=== PATIENT | female | born 1945 | race American Indian/Alaskan Native ===

== ENCOUNTER 2022-05-02 07:59 | Day surgery (SDC) | payer MEDICARE ==
[2022-04-27 11:57] LABS: BASOPHILS # (AUTO) 0.1 X10'3 (0-0.2); BASOPHILS % (AUTO) 1.1 % (0-1); EOSINOPHILS # (AUTO) 0.5 X10'3 (0-0.9); EOSINOPHILS % (AUTO) 5.9 % (0-6); HEMATOCRIT 40.8 % (35.0-45.0); HEMOGLOBIN 13.5 g/dl (12.0-16.0); LYMPHOCYTES # (AUTO) 1.8 X10'3 (1.1-4.8); LYMPHOCYTES % (AUTO) 21.3 % (21-51); MEAN CORPUSCULAR HEMOGLOBIN 29.3 PG (27.0-31.0); MEAN CORPUSCULAR HGB CONC 33.1 g/dL (33.0-36.5); MEAN CORPUSCULAR VOLUME 88.5 FL (78-98); MEAN PLATELET VOLUME 7.7 FL (7.4-10.4); MONOCYTES # (AUTO) 0.6 X10'3 (0-0.9); NEUTROPHILS # (AUTO) 5.6 X10'3 (1.8-7.7); NEUTROPHILS % (AUTO) 64.7 % (42-75); PLATELET COUNT 285 X10'3 (140-440); RED BLOOD COUNT 4.61 X10'6 (4.20-5.60); RED CELL DISTRIBUTION WIDTH 14.6 % (11.5-14.5); WHITE BLOOD COUNT 8.6 X10'3 (4.5-11.0)
[2022-04-27 12:09] LABS: APTT 27 SECONDS (22-32)
[2022-04-27 12:30] LABS: ALANINE AMINOTRANSFERASE 45 U/L (12-78); ALBUMIN 3.9 G/DL (3.4-5.0); ALBUMIN/GLOBULIN RATIO 1.1 (1.1-1.5); ALKALINE PHOSPHATASE 78 IU/L (46-116); ANION GAP 7 (8-16); ASPARTATE AMINO TRANSFERASE 33 U/L (10-37); BILIRUBIN,TOTAL 0.2 MG/DL (0.1-1.0); BLOOD UREA NITROGEN 23 MG/DL (7-18); BUN/CREATININE RATIO 18.4 (6.6-38.0); CALCIUM 9.3 MG/DL (8.5-10.1); CHLORIDE 100 MMOL/L (99-107); CREATININE 1.25 MG/DL (0.40-0.90); GLUCOSE 103 MG/DL (70-104); POTASSIUM 5.1 MMOL/L (3.5-5.1); SODIUM 134 MMOL/L (135-145); TOTAL CARBON DIOXIDE 27.3 MMOL/L (24-32); TOTAL PROTEIN 7.6 G/DL (6.4-8.2); eGFR 42 ML/MIN
[~2022-05-02] VITALS: Ht 167.6 cm; Wt 77.1 kg
[2022-05-02] VITALS (12 sets, daily range): BP systolic 93–162; BP diastolic 38–117
[2022-05-02] MEDS ORDERED: MAGN400T56 PO (08:17)
[2022-05-02] MEDS ORDERED: ROSU10TA2 PO (08:20)
[2022-05-02] MEDS ORDERED: DICL75TA5 PO (08:20)
[2022-05-02] MEDS ORDERED: LEVO100T PO (08:20)
[2022-05-02] MEDS ORDERED: ROPI4TAB22 PO (08:20)
[2022-05-02] MEDS ORDERED: LORazepam 0.5 MG tablet PO PRN (08:25)
[2022-05-02] MEDS ORDERED: diphenhydrAMINE 25mg capsule PO PRN (08:25)
[2022-05-02] MEDS ORDERED: normal saline 1,000 ML IV SCH (08:25)
[2022-05-02] MEDS ORDERED: nitroGLYCERIN 0.4mg SUBLingual tab SL PRN (08:25)
[2022-05-02] MEDS ORDERED: CALC-965 PO (08:26)
[2022-05-02] MEDS ORDERED: Vitamin E PO (08:26)
[2022-05-02] MEDS ORDERED: POTA20PA40 PO (08:26)
[2022-05-02 09:10] LABS: ALANINE AMINOTRANSFERASE 41 U/L (12-78); ALBUMIN 3.8 G/DL (3.4-5.0); ALBUMIN/GLOBULIN RATIO 1.1 (1.1-1.5); ALKALINE PHOSPHATASE 72 IU/L (46-116); ANION GAP 10 (8-16); ASPARTATE AMINO TRANSFERASE 21 U/L (10-37); BILIRUBIN,TOTAL 0.3 MG/DL (0.1-1.0); BLOOD UREA NITROGEN 28 MG/DL (7-18); CALCIUM 9.7 MG/DL (8.5-10.1); CHLORIDE 101 MMOL/L (99-107); CREATININE 1.27 MG/DL (0.40-0.90); GLUCOSE 95 MG/DL (70-104); POTASSIUM 4.7 MMOL/L (3.5-5.1); SODIUM 135 MMOL/L (135-145); TOTAL CARBON DIOXIDE 24.3 MMOL/L (24-32); TOTAL PROTEIN 7.4 G/DL (6.4-8.2); eGFR 41 ML/MIN
[2022-05-02] MEDS ORDERED: pneumococcal 23-VAL P-sac vacc 25 mcg/0.5ml vial IMVAC ONE (09:50)
[2022-05-02] MEDS ORDERED: midazolam 1 mg/ML 2ml injection ONE (10:10)
[2022-05-02] MEDS ORDERED: LIDOcaine 1% 30ml preserv. free vial ONE (10:10)
[2022-05-02] MEDS ORDERED: fentaNYL/PF 50MCG/1 ML 2ML syringe ONE (10:10)
[2022-05-02] MEDS ORDERED: iohexol 350MG/ML 100ml bottle IV ONE (10:11)
[2022-05-02] MEDS ORDERED: iohexol 350 MG/ML 50ML vial IV ONE (10:11)
[2022-05-02] MEDS ORDERED: proCHLORperazine 10 MG/2 ml inj ONE (10:31)
[2022-05-02] MEDS ORDERED: ROPINIRole 1mg tablet PO SCH (11:30)
[2022-05-02] MEDS ORDERED: proCHLORperazine 10 MG/2 ml inj IV PRN (11:50)
[2022-05-02] MEDS ORDERED: OXAZEpam 15mg capsule PO PRN (11:50)
[2022-05-02] MEDS ORDERED: ondansetron/PF 4mg/2ml inj IV PRN (11:50)
--- NOTE | 2022-05-02 11:50 | NUR ---
Barrett catheter placed per post-cath orders. 400 mL of clear yellow urine drainage noted.
[2022-05-02] MEDS ORDERED: HYDROcodone/acetaminophen 5mg/325mg tablet PO PRN (13:30)
[2022-05-02] MEDS ORDERED: HYDROcodone/acetaminophen 10/325mg tab PO PRN (13:30)
--- NOTE | 2022-05-02 17:00 | NUR ---
Barrett catheter discontinued. Patient tolerated well.
== END 2022-05-02 18:00 | disposition home or self-care (01) ==
LOC: SSTAY O 07:59
PROVIDERS: ATTEND Internal Medicine Cardiovascular Disease
DX: R94.39 Abnormal result of other cardiovascular function study (principal); I25.10 Atherosclerotic heart disease of native coronary artery without angina pectoris; I10 Essential (primary) hypertension; E78.5 Hyperlipidemia, unspecified; F17.210 Nicotine dependence, cigarettes, uncomplicated; Z88.5 Allergy status to narcotic agent; Z88.1 Allergy status to other antibiotic agents; Z98.890 Other specified postprocedural states; Z86.73 Personal history of transient ischemic attack (TIA), and cerebral infarction without residual deficits; Z86.16 Personal history of COVID-19; Z79.899 Other long term (current) drug therapy; Z79.01 Long term (current) use of anticoagulants; Z23 Encounter for immunization
CPT/HCPCS: 36415; 71046; 80053; 85025; 85610; 85730; 90732; 93005; 93458; 99152; C1760; C1769; G0009; J0780; J1644; J2250; J3010; J3490; J7030; Q0163; Q9967; 99153